=== PATIENT | male | born 1980 | race Caucasian/White ===

== ENCOUNTER 2018-11-08 12:28 | Emergency (ER) | payer OTHER ==
[~2018-11-08] VITALS: Ht 172.7 cm; Wt 75.3 kg
== END 2018-11-08 16:12 | disposition home or self-care (01) ==
LOC: ER 12:28
DX: S82.62XA Displaced fracture of lateral malleolus of left fibula, initial encounter for closed fracture (principal); W18.39XA Other fall on same level, initial encounter; Y93.89 Activity, other specified; Y92.89 Other specified places as the place of occurrence of the external cause; Y99.8 Other external cause status

== ENCOUNTER 2021-04-01 00:25 | Emergency (ER) | payer OTHER ==
[~2021-04-01] VITALS: Ht 172.7 cm; Wt 73.5 kg
[2021-04-01] MEDS ORDERED: CLEOCIN HCL300 MG PO (03:35)
[2021-04-01] MEDS ORDERED: INTESTINEX680 M1 PO (03:35)
[2021-04-01] MEDS ORDERED: NAPROXEN375 MG PO (03:35)
== END 2021-04-01 04:18 | disposition home or self-care (01) ==
LOC: ER 00:25
DX: S80.862A Insect bite (nonvenomous), left lower leg, initial encounter (principal); L03.116 Cellulitis of left lower limb; W57.XXXA Bitten or stung by nonvenomous insect and other nonvenomous arthropods, initial encounter; Y93.89 Activity, other specified; Y92.89 Other specified places as the place of occurrence of the external cause; Y99.8 Other external cause status